=== PATIENT | male | born 1970 | race Caucasian/White ===

== ENCOUNTER 2021-01-01 09:47 | Inpatient (IN) ==
[~2021-01-01 09:47] MED LIST: *HR* HYDROmorphone 2 MG TABLET PO PRN; *HR* HYDROmorphone PF 0.5 MG/0.5 ML SYRINGE IVP PRN; *HR* Labetalol 20 MG/4 ML SYRINGE IVP PRN; *HR* OxyCODONE Immed Rel 5 MG TABLET PO PRN; Acetaminophen IV 1,000 MG/100 ML BAG IVPB ONE; Famotidine 20 MG/2 ML VIAL IVP ONE
[2021-01-01] MEDS ORDERED: CeFAZolin Syr 2,000MG/20 ML 2,000 MG/20 ML SYRINGE IVPB ONE (10:14)
[2021-01-01] MEDS ORDERED: Ringers Solution, Lactated 1,000 ML IVC SCH (10:15)
[2021-01-01] MEDS ORDERED: *HR* FentaNYL (PF) 100 MCG/2 ML VIAL ONE ×2 (10:44→13:35)
[2021-01-01] MEDS ORDERED: *HR* Midazolam HCl 2 MG/2 ML VIAL ONE (10:44)
[2021-01-01] MEDS ORDERED: *HR* Succinylcholine 200 MG/10 ML VIAL IVP ONE (10:44)
[2021-01-01] MEDS ORDERED: Ondansetron 4 MG/2 ML VIAL ONE (10:44)
[2021-01-01] MEDS ORDERED: Lidocaine -MPF 2% 2 ML VIAL ONE (10:44)
[2021-01-01] MEDS ORDERED: Dexamethasone 4 MG/ML VIAL ONE (10:44)
[2021-01-01] MEDS ORDERED: *HR* Rocuronium Bromide 50 MG/5 ML VIAL ONE ×2 (10:44→12:48)
[2021-01-01] MEDS ORDERED: *HR* Propofol 200 MG/20 ML VIAL IVP ONE (10:44)
[2021-01-01] MEDS ORDERED: Ketorolac 30 MG/ML VIAL ONE (10:44)
[2021-01-01] MEDS ORDERED: EPHEDrine 50 MG/ML VIAL ONE (12:18)
[2021-01-01] MEDS ORDERED: *HR* LORazepam 1 MG TABLET PO ONE (15:37)
[2021-01-01] MEDS ORDERED: Ondansetron 4 MG/2 ML VIAL IVP PRN (15:37)
[2021-01-01] MEDS: Gabapentin 300 MG CAPSULE PO SCH ×2 (16:24→20:12)
[2021-01-01] MEDS: 0.9 % Sodium Chloride 1,000 ML IVC SCH (16:24)
[2021-01-01] MEDS: *HR* HYDROcodone/Acet 5/325 mg TABLET PO PRN ×2 (16:24→20:21)
[2021-01-01] MEDS: Ipratropium/Albuterol Neb 3 ML IH SCH ×3 (16:26→23:43)
[2021-01-01] MEDS: (Insulin Pump Cartridge [Insulin Pump] 1 DEVICE) SQ SCH (16:36)
[2021-01-01] MEDS: Sennosides/Docusate Sodium TABLET PO SCH (20:12)
[2021-01-01] MEDS: Famotidine 20 MG TABLET PO SCH (20:13)
[2021-01-01] MEDS: *HR* Heparin 5,000 UNIT/ML VIAL SQ SCH (21:01)
[2021-01-01] MEDS ORDERED: *HR* HYDROmorphone 2 MG/ML SYRINGE IVP ONE (21:42)
[2021-01-01] MEDS: *HR* HYDROcodone/Acet 7.5/325 mg TABLET PO PRN (23:58)
[2021-01-02] MEDS: Ipratropium/Albuterol Neb 3 ML IH SCH ×6 (03:50→23:18)
[2021-01-02] MEDS: *HR* HYDROcodone/Acet 7.5/325 mg TABLET PO PRN ×5 (04:42→21:13)
[2021-01-02] MEDS: 0.9 % Sodium Chloride 1,000 ML IVC SCH (04:43)
[2021-01-02 05:12] LABS: Hematocrit 33.4 % (37.5-50.1); Mean Corpuscular HGB Conc 33.5 g/dL (31.6-35.5); Mean Corpuscular Hemoglobin 29.7 pg (28.0-33.3); Mean Corpuscular Volume 88.6 fL (83.0-100.0); Platelet Count 289 K/mcL (140-400); Red Blood Count 3.77 M/mcL (4.19-5.50); Red Cell Distribution Width 12.5 % (11.5-14.5)
[2021-01-02] MEDS: *HR* Heparin 5,000 UNIT/ML VIAL SQ SCH ×3 (05:20→23:49)
[2021-01-02 05:22] LABS: Hemoglobin 11.2 g/dL (12.9-16.9)
[2021-01-02 05:24] LABS: Albumin 3.3 g/dL (3.5-5.7); Albumin/Globulin Ratio 1.1 (1.1-2.2); Bilirubin,Indirect 0.5 mg/dL (0.0-1.0); Bilirubin,Total 0.5 mg/dL (0.3-1.0); Calcium 8.4 mg/dL (8.6-10.3); Potassium 4.4 mEq/L (3.5-5.1); Total Protein 6.3 g/dL (6.4-8.9)
[2021-01-02] MEDS ORDERED: *HR* Dextrose 50 % in Water (Vial) 50 ML VIAL IVP PRN (06:16)
[2021-01-02] MEDS ORDERED: D5% in Water 1,000 ML IVC PRN (06:16)
[2021-01-02] MEDS ORDERED: Dextrose Gel 15 GM/37.5 ML TUBE PO PRN ×2 (06:16)
[2021-01-02] MEDS: Insulin LISPRO 300 UNITS/3 ML VIAL SUBQ SCH ×5 (06:26→19:55)
[2021-01-02] MEDS: Sennosides/Docusate Sodium TABLET PO SCH ×2 (08:03→19:54)
[2021-01-02] MEDS: Famotidine 20 MG TABLET PO SCH ×2 (08:04→19:54)
[2021-01-02] MEDS: Gabapentin 300 MG CAPSULE PO SCH ×3 (08:04→19:55)
[2021-01-02] MEDS: Insulin DETEMIR 100 UNIT/ML X5UNITS SUBQ SCH ×2 (09:58→19:55)
[2021-01-02] MEDS: (Insulin Pump Cartridge [Insulin Pump] 1 DEVICE) SQ SCH (17:12)
[2021-01-03] MEDS: *HR* OxyCODONE Immed Rel 5 MG TABLET PO PRN ×3 (00:06→17:01)
[2021-01-03] MEDS: *HR* HYDROcodone/Acet 7.5/325 mg TABLET PO PRN ×4 (03:19→20:02)
[2021-01-03] MEDS: Ipratropium/Albuterol Neb 3 ML IH SCH ×6 (04:30→23:56)
[2021-01-03] MEDS: *HR* Heparin 5,000 UNIT/ML VIAL SQ SCH ×3 (06:32→20:00)
[2021-01-03] MEDS: Gabapentin 300 MG CAPSULE PO SCH ×3 (07:50→20:02)
[2021-01-03] MEDS: Sennosides/Docusate Sodium TABLET PO SCH ×2 (07:50→20:02)
[2021-01-03] MEDS: Famotidine 20 MG TABLET PO SCH ×2 (07:50→20:02)
[2021-01-03] MEDS: Insulin DETEMIR 100 UNIT/ML X5UNITS SUBQ SCH ×2 (07:52→20:01)
[2021-01-03] MEDS: Insulin LISPRO 300 UNITS/3 ML VIAL SUBQ SCH ×5 (07:53→20:01)
[2021-01-03] MEDS: Sucralfate 1 GM TABLET PO SCH ×2 (17:01→20:02)
[2021-01-03] MEDS: (Insulin Pump Cartridge [Insulin Pump] 1 DEVICE) SQ SCH (17:02)
[2021-01-04 04:31] LABS: Calcium 8.8 mg/dL (8.6-10.3); Magnesium 2.1 mg/dL (1.6-2.6); Potassium 4.3 mEq/L (3.5-5.1)
[2021-01-04] MEDS: Ipratropium/Albuterol Neb 3 ML IH SCH ×6 (04:31→23:34)
[2021-01-04] MEDS: *HR* HYDROcodone/Acet 7.5/325 mg TABLET PO PRN ×4 (04:50→20:22)
[2021-01-04] MEDS: *HR* Heparin 5,000 UNIT/ML VIAL SQ SCH ×3 (04:50→20:19)
[2021-01-04] MEDS: Sucralfate 1 GM TABLET PO SCH ×4 (08:26→20:17)
[2021-01-04] MEDS: Sennosides/Docusate Sodium TABLET PO SCH ×2 (08:26→20:17)
[2021-01-04] MEDS: ARIPiprazole 5 MG TABLET PO SCH (08:26)
[2021-01-04] MEDS: *HR* OxyCODONE Immed Rel 5 MG TABLET PO PRN ×3 (08:26→17:34)
[2021-01-04] MEDS: Famotidine 20 MG TABLET PO SCH ×2 (08:26→20:17)
[2021-01-04] MEDS: Insulin LISPRO 300 UNITS/3 ML VIAL SUBQ SCH ×7 (08:27→20:19)
[2021-01-04] MEDS: Insulin DETEMIR 100 UNIT/ML X5UNITS SUBQ SCH ×2 (08:27→20:18)
[2021-01-04] MEDS: Gabapentin 300 MG CAPSULE PO SCH ×3 (08:27→20:18)
[2021-01-04] MEDS: (Insulin Pump Cartridge [Insulin Pump] 1 DEVICE) SQ SCH (14:50)
[2021-01-05] MEDS: Ipratropium/Albuterol Neb 3 ML IH SCH ×6 (04:10→23:05)
[2021-01-05] MEDS: *HR* Heparin 5,000 UNIT/ML VIAL SQ SCH ×3 (05:12→20:00)
[2021-01-05] MEDS: *HR* HYDROcodone/Acet 7.5/325 mg TABLET PO PRN ×2 (05:14→11:32)
[2021-01-05 05:35] LABS: Basophils # 0.1 K/mcL (0.0-0.2); Basophils % 0.5 %; Eosinophils # 0.5 K/mcL (0.0-0.6); Eosinophils % 4.3 %; Hematocrit 32.6 % (37.5-50.1); Hemoglobin 10.3 g/dL (12.9-16.9); Immature Granulocytes % 0.2 % (0-4); Lymphocytes # 1.7 K/mcL (0.6-4.6); Lymphocytes % 15.4 %; Mean Corpuscular HGB Conc 31.6 g/dL (31.6-35.5); Mean Corpuscular Hemoglobin 29.6 pg (28.0-33.3); Mean Corpuscular Volume 93.7 fL (83.0-100.0); Mean Platelet Volume 10.6 fL (9.4-12.4); Monocytes # 1.1 K/mcL (0.0-1.3); Monocytes % 10.4 %; Neutrophils # 7.4 K/mcL (1.6-8.9); Platelet Count 309 K/mcL (140-400); Red Blood Count 3.48 M/mcL (4.19-5.50); Red Cell Distribution Width 12.8 % (11.5-14.5); Segmented Neutrophils % 69.2 %; White Blood Count 10.8 K/mcL (4.3-11.1)
[2021-01-05 05:56] LABS: Calcium 9.2 mg/dL (8.6-10.3); Magnesium 2.2 mg/dL (1.6-2.6); Potassium 4.8 mEq/L (3.5-5.1)
[2021-01-05] MEDS: ARIPiprazole 5 MG TABLET PO SCH (08:17)
[2021-01-05] MEDS: Insulin DETEMIR 100 UNIT/ML X5UNITS SUBQ SCH ×2 (08:17→19:59)
[2021-01-05] MEDS: Famotidine 20 MG TABLET PO SCH ×2 (08:17→20:01)
[2021-01-05] MEDS: Sucralfate 1 GM TABLET PO SCH ×4 (08:17→20:01)
[2021-01-05] MEDS: Sennosides/Docusate Sodium TABLET PO SCH ×2 (08:17→20:01)
[2021-01-05] MEDS: Gabapentin 300 MG CAPSULE PO SCH ×3 (08:17→20:01)
[2021-01-05] MEDS: Insulin LISPRO 300 UNITS/3 ML VIAL SUBQ SCH ×7 (08:18→20:00)
[2021-01-05] MEDS: Bisacodyl 10 MG RECTAL SUPPOSITORY RC SCH (15:58)
[2021-01-05] MEDS: *HR* OxyCODONE Immed Rel 5 MG TABLET PO PRN (15:58)
[2021-01-05] MEDS: (INSULIN PUMP) SQ SCH (18:06)
[2021-01-06] MEDS: Ipratropium/Albuterol Neb 3 ML IH SCH ×3 (03:43→11:17)
[2021-01-06] MEDS: *HR* Heparin 5,000 UNIT/ML VIAL SQ SCH (05:39)
[2021-01-06] MEDS: *HR* OxyCODONE Immed Rel 5 MG TABLET PO PRN ×2 (07:27→14:10)
[2021-01-06] MEDS: Sennosides/Docusate Sodium TABLET PO SCH (07:28)
[2021-01-06] MEDS: Famotidine 20 MG TABLET PO SCH (07:28)
[2021-01-06] MEDS: Gabapentin 300 MG CAPSULE PO SCH ×2 (07:28→15:05)
[2021-01-06] MEDS: Sucralfate 1 GM TABLET PO SCH (07:28)
[2021-01-06] MEDS: Insulin LISPRO 300 UNITS/3 ML VIAL SUBQ SCH ×4 (07:28→12:49)
[2021-01-06] MEDS: ARIPiprazole 5 MG TABLET PO SCH (07:28)
[2021-01-06] MEDS: Bisacodyl 10 MG RECTAL SUPPOSITORY RC SCH (07:29)
[2021-01-06] MEDS: Insulin DETEMIR 100 UNIT/ML X5UNITS SUBQ SCH (07:29)
[2021-01-06] MEDS: (INSULIN PUMP) SQ SCH (07:29)
[2021-01-06 11:41] VITALS: BP 161/77
== END 2021-01-06 15:29 | disposition home or self-care (01) | DRG 163 ==
LOC: SAMDAY 09:47 → 2NNU 15:05
PROVIDERS: ADMIT Thoracic Surgery (Cardiothoracic Vascular Surgery); ATTEND Thoracic Surgery (Cardiothoracic Vascular Surgery)